=== PATIENT | female | born 1980 | race Caucasian/White ===

== ENCOUNTER 2020-02-19 06:45 | Emergency (ER) | payer BC ==
[~2020-02-19] VITALS: Ht 165.1 cm; Wt 104.5 kg
[2020-02-19 06:55] VITALS: TEMP 98.8
[2020-02-19 07:53] LABS: BASO # 0.1 (0.0-0.2); BASO % 0.8 % (0.0-2.0); EOS # 0.8 (0.0-0.7); EOS % 8.4 % (0-4.0); GRAN # 5.4 (1.4-6.5); GRAN % 53.3 % (42.2-75.2); HEMATOCRIT 41.1 % (37.0-47.0); HEMOGLOBIN 13.9 g/dl (12.5-16.0); LYMPH # 3.1 (1.2-3.4); LYMPH % 31.3 % (20.0-51.0); MEAN CELL VOLUME 89 fl (80.0-100.0); MEAN CORPUSCULAR HEMOGLOBIN 30 pg (27.0-31.0); MEAN CORPUSCULAR HGB CONC 34 g/dl (33.0-37.0); MEAN PLATELET VOLUME 9.4 fl (7.4-10.4); MONO # 0.6 (0.1-0.6); MONO % 5.9 % (1.7-9.3); PLATELET COUNT 346 K/mm3 (130-400); RED BLOOD COUNT 4.64 M/mm3 (4.10-5.30)
[2020-02-19 08:07] LABS: ALBUMIN 4.7 gm/dL (3.5-5.0); BILIRUBIN,TOTAL 0.6 mg/dL (0.0-1.0); C-REACTIVE PROTEIN 1.2 mg/dL (0.0-0.9); CALCIUM 10.1 mg/dL (8.4-10.2); CREATININE, serum 0.97 (0.52-1.25); POTASSIUM 4.5 mmol/L (3.4-5.0); TOTAL PROTEIN 7.7 gm/dL (6.4-8.2)
[2020-02-19 08:09] LABS: COLLECTION METHOD CLEAN CATCH
[2020-02-19 08:15] LABS: MUCOUS Present /lpf; PH 5 (5-8); SQUAMOUS EPITHELIAL 0-2 /hpf; URINE APPEARANCE Hazy; URINE BACTERIA None Seen /hpf; URINE BILIRUBIN Negative (NEGATIVE); URINE BLOOD 3+ (NEGATIVE); URINE COLOR Yellow; URINE GLUCOSE Negative (NEGATIVE); URINE KETONE Negative (NEGATIVE); URINE LEUKOCYTE ESTERASE Negative (NEGATIVE); URINE NITRATE Negative (NEGATIVE); URINE PROTEIN(semi-quant) Negative (NEGATIVE); URINE RBC 20-50 /hpf; URINE UROBILINOGEN Negative (NEGATIVE)
[2020-02-19] MEDS ORDERED: PROZAC40 MG PO (08:27)
[2020-02-19] MEDS ORDERED: ESTRACE0.5 MG PO (08:27)
[2020-02-19] MEDS ORDERED: TRESIBA100 UNIT/1 SQ (08:28)
[2020-02-19] MEDS ORDERED: GLUCOPHAGE500 MG/TAB PO (08:29)
[2020-02-19] MEDS ORDERED: BUSPAR10 MG PO (08:30)
[2020-02-19] MEDS ORDERED: GLUCOTROL 5M5 MG/TAB PO (08:30)
[2020-02-19] MEDS ORDERED: ZYLOPRIM 100MG100 MG PO (08:31)
[2020-02-19] MEDS ORDERED: CLINORIL 1150 MG/TAB PO (08:31)
[2020-02-19] MEDS ORDERED: XANAX 0.5MG0.5 MG PO (08:32)
[2020-02-19] MEDS ORDERED: PRINIVIL40 MG PO (08:32)
[2020-02-19] MEDS ORDERED: OZEMPIC1 MG/0.75 SQ (08:32)
[2020-02-19] MEDS ORDERED: NORCO 325 MG-51 TAB PO (10:51)
[2020-02-19] MEDS ORDERED: ZOFRAN ODT4 MG PO (10:51)
[2020-02-19 11:13] VITALS: BP 120/82; PULSE 94
== END 2020-02-19 11:13 | disposition home or self-care (01) ==
LOC: COL.ER 06:45
PROVIDERS: Emergency Medicine
DX: N20.1 Calculus of ureter (principal); N23 Unspecified renal colic; R19.7 Diarrhea, unspecified; Z79.4 Long term (current) use of insulin; Z90.710 Acquired absence of both cervix and uterus; Z87.442 Personal history of urinary calculi
CPT/HCPCS: J1170; J1885; J2405; J7030; Q9967

== ENCOUNTER 2020-07-28 02:19 | Emergency (ER) | payer BC ==
[~2020-07-28] VITALS: Ht 165.1 cm; Wt 104.5 kg
[~2020-07-28 02:19] MED LIST: BUSPAR10 MG PO; CLINORIL 1150 MG/TAB PO; ESTRACE0.5 MG PO; GLUCOPHAGE500 MG/TAB PO; GLUCOTROL 5M5 MG/TAB PO; NORCO 325 MG-51 TAB PO; OZEMPIC1 MG/0.75 SQ; PRINIVIL40 MG PO; PROZAC40 MG PO; TRESIBA100 UNIT/1 SQ; XANAX 0.5MG0.5 MG PO; ZOFRAN ODT4 MG PO; ZYLOPRIM 100MG100 MG PO
[2020-07-28 02:22] VITALS: TEMP 97.8
[2020-07-28 02:59] LABS: BASO # 0.1 (0.0-0.2); BASO % 0.6 % (0.0-2.0); EOS # 0.3 (0.0-0.7); EOS % 2.9 % (0-4.0); GRAN # 5.7 (1.4-6.5); GRAN % 53.7 % (42.2-75.2); HEMATOCRIT 39.4 % (37.0-47.0); HEMOGLOBIN 13.3 g/dl (12.5-16.0); LYMPH # 3.8 (1.2-3.4); LYMPH % 35.6 % (20.0-51.0); MEAN CELL VOLUME 90 fl (80.0-100.0); MEAN CORPUSCULAR HEMOGLOBIN 31 pg (27.0-31.0); MEAN CORPUSCULAR HGB CONC 34 g/dl (33.0-37.0); MEAN PLATELET VOLUME 9.9 fl (7.4-10.4); MONO # 0.7 (0.1-0.6); MONO % 6.9 % (1.7-9.3); PLATELET COUNT 358 K/mm3 (130-400); RED BLOOD COUNT 4.36 M/mm3 (4.10-5.30); REDCELL DISTRIBUTION WIDTH-CV 12.6 % (11.5-14.5)
[2020-07-28 03:13] LABS: ALBUMIN 4.2 gm/dL (3.5-5.0); BILIRUBIN,TOTAL 0.6 mg/dL (0.0-1.0); C-REACTIVE PROTEIN 1.3 mg/dL (0.0-0.9); CALCIUM 8.9 mg/dL (8.4-10.2); CREATININE, serum 0.85 (0.52-1.25); POTASSIUM 4.2 mmol/L (3.4-5.0); TOTAL PROTEIN 6.8 gm/dL (6.4-8.2)
[2020-07-28] MEDS ORDERED: ZOFRAN ODT4 MG PO (04:15)
[2020-07-28 04:27] VITALS: BP 126/83; PULSE 93
== END 2020-07-28 04:40 | disposition home or self-care (01) ==
LOC: COL.ER 02:19
PROVIDERS: Emergency Medicine
DX: R10.13 Epigastric pain (principal); K59.00 Constipation, unspecified; R11.0 Nausea; R19.7 Diarrhea, unspecified; E11.9 Type 2 diabetes mellitus without complications; Z79.4 Long term (current) use of insulin
CPT/HCPCS: J1885; J2405; J2550; J7030

== ENCOUNTER 2021-01-05 09:08 | Emergency (ER) | payer BC ==
[~2021-01-05] VITALS: Ht 165.1 cm; Wt 104.5 kg
[2021-01-05 09:14] VITALS: TEMP 98.3
[2021-01-05 10:33] LABS: BASO # 0.1 (0.0-0.2); BASO % 0.8 % (0.0-2.0); EOS # 0.4 (0.0-0.7); EOS % 4.6 % (0-4.0); GRAN # 5.8 (1.4-6.5); GRAN % 59.9 % (42.2-75.2); HEMATOCRIT 40.5 % (37.0-47.0); HEMOGLOBIN 13.4 g/dl (12.5-16.0); LYMPH # 2.8 (1.2-3.4); MEAN CELL VOLUME 90 fl (80.0-100.0); MEAN CORPUSCULAR HEMOGLOBIN 30 pg (27.0-31.0); MEAN CORPUSCULAR HGB CONC 33 g/dl (33.0-37.0); MEAN PLATELET VOLUME 9.6 fl (7.4-10.4); MONO # 0.5 (0.1-0.6); MONO % 5.3 % (1.7-9.3); PLATELET COUNT 311 K/mm3 (130-400); RED BLOOD COUNT 4.49 M/mm3 (4.10-5.30); REDCELL DISTRIBUTION WIDTH-CV 12.9 % (11.5-14.5)
[2021-01-05 10:44] LABS: ALBUMIN 4.3 gm/dL (3.5-5.0); BILIRUBIN,TOTAL 0.5 mg/dL (0.0-1.0); CALCIUM 9.9 mg/dL (8.4-10.2); CREATININE, serum 0.83 (0.52-1.25); POTASSIUM 4.5 mmol/L (3.4-5.0); TOTAL PROTEIN 7.2 gm/dL (6.4-8.2)
[2021-01-05] MEDS ORDERED: ZOFRAN ODT4 MG PO (10:56)
[2021-01-05 11:08] VITALS: BP 129/84; PULSE 98
== END 2021-01-05 11:05 | disposition home or self-care (01) ==
LOC: COL.ER 09:08
PROVIDERS: Student in an Organized Health Care Education/Training Program
DX: K52.9 Noninfective gastroenteritis and colitis, unspecified (principal); K59.00 Constipation, unspecified; I10 Essential (primary) hypertension; E11.9 Type 2 diabetes mellitus without complications; F32.9 Major depressive disorder, single episode, unspecified; F41.9 Anxiety disorder, unspecified; Z20.822 Contact with and (suspected) exposure to COVID-19; Z79.4 Long term (current) use of insulin; Z79.899 Other long term (current) drug therapy
CPT/HCPCS: J1885; J2405; J7030

== ENCOUNTER 2021-01-11 03:17 | Emergency (ER) | payer BC ==
[~2021-01-11] VITALS: Ht 165.1 cm; Wt 104.5 kg
[2021-01-11 04:11] LABS: BASO # 0.1 (0.0-0.2); BASO % 0.7 % (0.0-2.0); EOS # 0.4 (0.0-0.7); EOS % 3.9 % (0-4.0); GRAN % 57.9 % (42.2-75.2); HEMATOCRIT 37.9 % (37.0-47.0); HEMOGLOBIN 12.8 g/dl (12.5-16.0); LYMPH # 3.1 (1.2-3.4); LYMPH % 29.7 % (20.0-51.0); MEAN CELL VOLUME 89 fl (80.0-100.0); MEAN CORPUSCULAR HEMOGLOBIN 30 pg (27.0-31.0); MEAN CORPUSCULAR HGB CONC 34 g/dl (33.0-37.0); MEAN PLATELET VOLUME 9.7 fl (7.4-10.4); MONO # 0.8 (0.1-0.6); MONO % 7.4 % (1.7-9.3); PLATELET COUNT 283 K/mm3 (130-400); RED BLOOD COUNT 4.25 M/mm3 (4.10-5.30); REDCELL DISTRIBUTION WIDTH-CV 12.8 % (11.5-14.5)
[2021-01-11 04:22] LABS: COLLECTION METHOD CLEAN CATCH
[2021-01-11 04:24] LABS: BILIRUBIN,TOTAL 0.3 mg/dL (0.0-1.0); CALCIUM 9.3 mg/dL (8.4-10.2); CREATININE, serum 0.84 (0.52-1.25); POTASSIUM 4.1 mmol/L (3.4-5.0); TOTAL PROTEIN 6.7 gm/dL (6.4-8.2)
[2021-01-11 04:28] LABS: MUCOUS Present /lpf; PH 5 (5-8); URINE APPEARANCE Hazy; URINE BACTERIA None Seen /hpf; URINE BILIRUBIN Negative (NEGATIVE); URINE BLOOD Negative (NEGATIVE); URINE COLOR Amber; URINE GLUCOSE Negative (NEGATIVE); URINE KETONE Negative (NEGATIVE); URINE LEUKOCYTE ESTERASE Negative (NEGATIVE); URINE NITRATE Negative (NEGATIVE); URINE PROTEIN(semi-quant) 1+ (NEGATIVE); URINE RBC 0-2 /hpf; URINE UROBILINOGEN Negative (NEGATIVE)
[2021-01-11] MEDS ORDERED: CIPRO 500MG TA500 MG PO (05:40)
[2021-01-11] MEDS ORDERED: ZOFRAN ODT4 MG PO (05:40)
[2021-01-11] MEDS ORDERED: NORCO 325 MG-51 TAB PO (05:40)
[2021-01-11 06:42] VITALS: BP 137/79; PULSE 105; TEMP 97.6
== END 2021-01-11 06:45 | disposition home or self-care (01) ==
LOC: COL.ER 03:17
PROVIDERS: Personal Emergency Response Attendant
DX: K52.9 Noninfective gastroenteritis and colitis, unspecified (principal); E11.9 Type 2 diabetes mellitus without complications; I10 Essential (primary) hypertension; F32.9 Major depressive disorder, single episode, unspecified; F41.9 Anxiety disorder, unspecified; Z87.442 Personal history of urinary calculi; Z90.710 Acquired absence of both cervix and uterus; Z79.4 Long term (current) use of insulin; Z79.899 Other long term (current) drug therapy
CPT/HCPCS: J2270; J2405; J7030; Q9967

== ENCOUNTER 2021-10-21 04:35 | Emergency (ER) | payer BC ==
[~2021-10-21] VITALS: Ht 165.1 cm; Wt 106.8 kg
[~2021-10-21 04:35] MED LIST changes: +CIPRO 500MG TA500 MG PO
[2021-10-21 04:41] VITALS: TEMP 98
[2021-10-21 05:14] LABS: BASO # 0.1 K/mm3 (0.0-0.2); BASO % 0.6 % (0.0-2.0); EOS # 0.6 K/mm3 (0.0-0.7); EOS % 4.3 % (0.0-4.0); GRAN # 8.5 K/mm3 (1.4-6.5); GRAN % 60.1 % (42.2-75.2); HEMATOCRIT 39.2 % (37.0-47.0); HEMOGLOBIN 13.1 g/dl (12.5-16.0); LYMPH # 4.1 K/mm3 (1.2-3.4); LYMPH % 28.8 % (20.0-51.0); MEAN CELL VOLUME 91 fl (80.0-100.0); MEAN CORPUSCULAR HEMOGLOBIN 30 pg (27-31); MEAN CORPUSCULAR HGB CONC 33 g/dl (33.0-37.0); MEAN PLATELET VOLUME 9.7 fl (7.4-10.4); MONO # 0.8 K/mm3 (0.1-0.6); MONO % 5.8 % (1.7-9.3); PLATELET COUNT 322 K/mm3 (130-400); RED BLOOD COUNT 4.32 M/mm3 (4.10-5.30); REDCELL DISTRIBUTION WIDTH-CV 13.3 % (11.5-14.5)
[2021-10-21 05:38] LABS: ALBUMIN 3.8 gm/dL (3.5-5.0); BILIRUBIN,TOTAL 0.5 mg/dL (0.2-1.2); C-REACTIVE PROTEIN 0.85 mg/dL (0.00-0.50); CALCIUM 9.9 mg/dL (8.4-10.2); CREATININE, serum 0.88 mg/dL (0.57-1.11); POTASSIUM 4.3 mmol/L (3.5-4.5); TOTAL PROTEIN 7.2 gm/dL (6.2-8.1)
[2021-10-21] MEDS ORDERED: ZOFRAN ODT4 MG PO (06:54)
[2021-10-21 07:28] VITALS: BP 129/76; PULSE 99
== END 2021-10-21 07:30 | disposition home or self-care (01) ==
LOC: COL.ER 04:35
PROVIDERS: Emergency Medicine
DX: R19.7 Diarrhea, unspecified (principal); R11.0 Nausea; D72.829 Elevated white blood cell count, unspecified
CPT/HCPCS: J2405; J2550; J7030; Q9967